=== PATIENT | male | born 1995 | race Caucasian/White ===

== ENCOUNTER → 2018-03-25 | Outpatient (CLI) | payer OTHER | LOC: FIMAGING 16:23 | PROVIDERS: ATTEND Family Medicine | DX: M25.361 Other instability, right knee (principal) ==

== ENCOUNTER → 2018-04-04 | Outpatient (CLI) | payer OTHER | LOC: FIMAGING 07:21 | PROVIDERS: ATTEND Family Medicine | DX: S80.01XA Contusion of right knee, initial encounter (principal); S83.411A Sprain of medial collateral ligament of right knee, initial encounter; M76.51 Patellar tendinitis, right knee; M25.461 Effusion, right knee ==